=== PATIENT | male | born 1975 | race Caucasian/White ===

== ENCOUNTER 2017-10-21 06:11 | Emergency (ER) | payer OTHER ==
[~2017-10-21] VITALS: Ht 185.4 cm; Wt 110.0 kg
[~2017-10-21 06:11] MED LIST: AUGM875T PO; PERC5TAB12 PO; VENL75 PO; WELL200T PO
[2017-10-21 06:44] VITALS: BP 139/102; PULSE 86; RESP 20; TEMP 97.2; O2SAT 99
[2017-10-21] MEDS ORDERED: SODIUM CHLOR 0.9% 1000 ML INJ 1,000 ML IV SCH (07:35)
--- NOTE | 2017-10-21 07:40 | PD ---
HPI Chief Complaint: GI Complaint Time Seen by Provider: 07:35 Travel History International Travel<30 days: No Contact w/Intl Traveler<30days: No Traveled to known affect area: No History of Present Illness HPI 42-year-old male patient presents to the ER today, woke up this morning with nausea, vomiting, diarrhea, and noticed a rash all over his body, thinks this may be hives. He denies any chest pains, shortness of breath, fevers, or any other symptoms. He has not had any sore throat or other symptoms. He does not know of any sick contacts or bad food exposure. He also states he has not been on any new medications or eating any new foods. He denies any previous issues with this in the past. He had taken 1 baby dose of Benadryl this morning. Patient states that he has vomited 3-4 times this morning. Modifying Factors: None Associated Signs & Symptoms: Nausea, vomiting, diarrhea, rash, possible allergic reaction Risk Factors: None PFSH Past Medical History Medical History: Denies Significant Hx Diminished Hearing: No Tetanus Vaccination: Unknown Influenza Vaccination: No Past Surgical History Surgical History: No Previous Surgery Social History Alcohol Use: No Tobacco Use: Yes Substance Use: No Allergies-Medications (Allergen,Severity, Reaction): Coded Allergies: No Known Allergies (Unverified Adverse Reaction, Unknown, 10/21/17) Reported Meds & Prescriptions Reported Meds & Active Scripts Active Percocet 5-325 mg (Oxycodone/Acetaminophen) Oxycodone 5/325 Acetaminophen Tab 1 Tab PO Q6 PRN Reported Augmentin 875 mg Tab (Amoxicillin & Pot Clavulanate 875 mg Tab) 875 Mg Tab 875 Mg PO BID Effexor 75 Mg Tab (Venlafaxine HCl) 75 Mg Tab 75 Mg PO BID Wellbutrin Sr (Bupropion HCl) 200 Mg Tab 300 Mg PO DAILY Review of Systems Except as stated in HPI: all other systems reviewed are Neg Physical Exam Narrative GENERAL: Well-developed middle-age male patient currently in moderate distress. Awake and oriented 3. SKIN: Focused skin assessment warm/dry. There is a blanching erythematous urticarial rash notable on the extremities and trunk area. No rash on the palm and soles of the feet. HEAD: Atraumatic. Normocephalic. I do not see any signs of angioedema. EYES: Pupils equal and round. No scleral icterus. No injection or drainage. ENT: Mucosa pink and moist. No erythema or exudates. No uvular edema. No uvular , palatal, or tonsillar deviation. Airway patent. NECK: Trachea midline. No JVD. Supple. CARDIOVASCULAR: Regular rate and rhythm. No murmur appreciated. RESPIRATORY: No accessory muscle use. Clear to auscultation. Breath sounds equal bilaterally. GASTROINTESTINAL: Abdomen soft, non-tender, nondistended. Hepatic and splenic margins not palpable. MUSCULOSKELETAL: No obvious deformities. No clubbing. No cyanosis. No edema. NEUROLOGICAL: Awake and alert. No obvious cranial nerve deficits. Motor grossly within normal limits. Normal speech. PSYCHIATRIC: Appropriate mood and affect; insight and judgment normal. Data Data Last Documented VS Vital Signs Date Time Temp Pulse Resp B/P (MAP) Pulse Ox O2 Delivery O2 Flow Rate FiO2 10/21/17 07:43 97 Room Air 10/21/17 06:44 97.2 86 20 139/102 (114) Orders Orders Complete Blood Count With Diff (10/21/17 07:35) Comprehensive Metabolic Panel (10/21/17 07:35) Ecg Monitoring (10/21/17 07:35) Iv Access Insert/Monitor (10/21/17 07:35) Oximetry (10/21/17 07:35) Diphenhydramine Inj (Benadryl Inj) (10/21/17 07:45) Methylprednisolone So Succ Inj (Solumedr (10/21/17 07:45) Famotidine Inj (Pepcid Inj) (10/21/17 07:45) Sodium Chlor 0.9% 1000 Ml Inj (Ns 1000 M (10/21/17 07:35) Sodium Chloride 0.9% Flush (Ns Flush) (10/21/17 07:45) Ondansetron Inj (Zofran Inj) (10/21/17 07:45) Labs Laboratory Tests Test 10/21/17 07:35 White Blood Count 13.8 TH/MM3 Red Blood Count 6.34 MIL/MM3 Hemoglobin 18.0 GM/DL Hematocrit 53.6 % Mean Corpuscular Volume 84.5 FL Mean Corpuscular Hemoglobin 28.4 PG Mean Corpuscular Hemoglobin Concent 33.6 % Red Cell Distribution Width 13.5 % Platelet Count 242 TH/MM3 Mean Platelet Volume 9.4 FL Neutrophils (%) (Auto) 81.8 % Lymphocytes (%) (Auto) 11.5 % Monocytes (%) (Auto) 5.7 % Eosinophils (%) (Auto) 0.6 % Basophils (%) (Auto) 0.4 % Neutrophils # (Auto) 11.3 TH/MM3 Lymphocytes # (Auto) 1.6 TH/MM3 Monocytes # (Auto) 0.8 TH/MM3 Eosinophils # (Auto) 0.1 TH/MM3 Basophils # (Auto) 0.1 TH/MM3 CBC Comment DIFF FINAL Differential Comment Blood Urea Nitrogen 19 MG/DL Creatinine 1.17 MG/DL Random Glucose 102 MG/DL Total Protein 7.5 GM/DL Albumin 3.9 GM/DL Calcium Level 9.0 MG/DL Alkaline Phosphatase 89 U/L Aspartate Amino Transf (AST/SGOT) 46 U/L Alanine Aminotransferase (ALT/SGPT) 40 U/L Total Bilirubin 0.9 MG/DL Sodium Level 141 MEQ/L Potassium Level 4.9 MEQ/L Chloride Level 110 MEQ/L Carbon Dioxide Level 24.2 MEQ/L Anion Gap 7 MEQ/L Estimat Glomerular Filtration Rate 69 ML/MIN [facility] Medical Decision Making Medical Screen Exam Complete: Yes Emergency Medical Condition: Yes Medical Record Reviewed: Yes Interpretation(s) Laboratory Tests Test 10/21/17 07:35 White Blood Count 13.8 TH/MM3 (4.0-11.0) Red Blood Count 6.34 MIL/MM3 (4.50-5.90) Hemoglobin 18.0 GM/DL (13.0-17.0) Hematocrit 53.6 % (39.0-51.0) Neutrophils (%) (Auto) 81.8 % (16.0-70.0) Neutrophils # (Auto) 11.3 TH/MM3 (1.8-7.7) Blood Urea Nitrogen 19 MG/DL (7-18) Aspartate Amino Transf (AST/SGOT) 46 U/L (15-37) Chloride Level 110 MEQ/L (98-107) Estimat Glomerular Filtration Rate 69 ML/MIN (>89) Differential Diagnosis Allergic reaction versus gastroenteritis/viral syndrome versus dehydration versus metabolic issues versus food poisoning Narrative Course Abdomen is benign and I am not suspecting acute intra-abdominal process. His symptoms are more suspicious of an allergic reaction. His white blood cell count is elevated by suspected that this is secondary to edema marginalization affect. Patient was given Benadryl, Zofran, Solu-Medrol, Zantac, and was observed in the ER for several hours with resolution of all symptoms. At this point, my plan would be to release the patient would follow-up to primary care physician and possible senior [employer] developer. It is unclear what he may be reacting to. At this point, my plan would be to give him further treatment at home. Return for worsening in symptoms as needed. The plan has been discussed with him he states understanding. Diagnosis Primary Impression: Allergic reaction Med/Other Pt SpecificInfo: Prescription(s) given Scripts Diphenhydramine (Diphenhydramine) 25 Mg Cap 25 MG PO Q6H Y for ALLERGIES, #20 CAP 0 Refills Prov: Tatiana Raya MD 10/21/17 Epinephrine Inj (Epinephrine Inj) 0.3 Mg/0.3 Ml Pfpen 0.3 MG IM ONCE Y for ALLERGIC REACTION, #1 PEN 0 Refills Prov: Tatiana Raya MD 10/21/17 Methylprednisolone Dosepak (Medrol Dosepak) 4 Mg Dspk 4 MG PO DIRECTED, #1 DSPK 0 Refills Per Pharmacist direction Prov: Tatiana Raya MD 10/21/17 Ondansetron Odt (Zofran Odt) 4 Mg Tab 4 MG SL Q6HR Y for Nausea/Vomiting, #5 TAB 0 Refills Prov: Tatiana Raya MD 10/21/17 Disposition: 01 DISCHARGE HOME Condition: Stable Tatiana Raya MD Oct 21, 2017 07:40
[2017-10-21 07:43] VITALS: O2SAT 97
[2017-10-21] MEDS ORDERED: methylPREDNISolone SOD SUCC 125 MG/2 ML VIAL IV PUSH ONE (07:45)
[2017-10-21] MEDS ORDERED: diphenhydrAMINE HCL 50 MG/ML VIAL IVP ONE (07:45)
[2017-10-21] MEDS ORDERED: FAMOTIDINE 20 MG/2 ML VIAL IV PUSH ONE (07:45)
[2017-10-21] MEDS ORDERED: SODIUM CHLORIDE 0.9% FLUSH 10 ML FLUSH IV FLUSH PRN (07:45)
[2017-10-21] MEDS ORDERED: ONDANSETRON HCL 4 MG/2 ML VIAL IV PUSH ONE (07:45)
[2017-10-21 08:06] LABS: AUTOMATED NEUTROPHIL # 11.3 TH/MM3 (1.8-7.7); BASOPHIL # 0.1 TH/MM3 (0-0.2); BASOPHIL % 0.4 % (0.0-2.0); EOSINOPHIL # 0.1 TH/MM3 (0-0.4); EOSINOPHIL % 0.6 % (0.0-4.0); HEMATOCRIT 53.6 % (39.0-51.0); LYMPH % 11.5 % (9.0-44.0); LYMPHOCYTE # 1.6 TH/MM3 (1.0-4.8); MEAN CELL VOLUME 84.5 FL (80.0-100.0); MEAN CORPUSCULAR HEMOGLOBIN 28.4 PG (27.0-34.0); MEAN CORPUSCULAR HGB CONC 33.6 % (32.0-36.0); MEAN PLATELET VOLUME 9.4 FL (7.0-11.0); MONO % 5.7 % (0.0-8.0); MONOCYTE # 0.8 TH/MM3 (0-0.9); NEUT % 81.8 % (16.0-70.0); PLATELET COUNT 242 TH/MM3 (150-450); RED BLOOD COUNT 6.34 MIL/MM3 (4.50-5.90); RED CELL DISTRIBUTION WIDTH 13.5 % (11.6-17.2); WHITE BLOOD COUNT 13.8 TH/MM3 (4.0-11.0)
[2017-10-21 08:35] LABS: ALKALINE PHOSPHATASE 89 U/L (45-117); BLOOD UREA NITROGEN 19 MG/DL (7-18); TOTAL BILIRUBIN ADULT 0.9 MG/DL (0.2-1.0); TOTAL PROTEIN 7.5 GM/DL (6.4-8.2)
[2017-10-21 08:36] LABS: ALBUMIN 3.9 GM/DL (3.4-5.0); ALT (GPT) 40 U/L (12-78); AST (GOT) 46 U/L (15-37); BICARBONATE 24.2 MEQ/L (21.0-32.0); CHLORIDE 110 MEQ/L (98-107); CREATININE 1.17 MG/DL (0.60-1.30); GLOMERULAR FILTRATION RATE 69 ML/MIN (>89); GLUCOSE,RANDOM 102 MG/DL (74-106); SODIUM (NA) 141 MEQ/L (136-145)
[2017-10-21 10:49] VITALS: BP 133/73; PULSE 88; RESP 18; O2SAT 98
[2017-10-21] MEDS ORDERED: DIPH25CA PO (10:51)
[2017-10-21] MEDS ORDERED: EPIN1INJ17 IM (10:51)
[2017-10-21] MEDS ORDERED: ZOFR4TAB3 SL (10:51)
[2017-10-21] MEDS ORDERED: MEDR4PAK PO (10:51)
== END 2017-10-21 11:14 | disposition home or self-care (01) ==
LOC: NEPC 06:11
DX: T78.40XA Allergy, unspecified, initial encounter (principal); R11.2 Nausea with vomiting, unspecified; R21 Rash and other nonspecific skin eruption; R19.7 Diarrhea, unspecified; Z72.0 Tobacco use
CPT/HCPCS: 80053; 85025; 96374; 96375; 99284; J1200; J2405; J2930; J7030